=== PATIENT | male | born 1990 | race Caucasian/White ===

== ENCOUNTER 2016-09-05 20:59 | Emergency (ER) | payer BC ==
--- NOTE | 2016-09-06 06:57 | ER ---
ADMIT: 09/05/2016 RM/LOC: ER [facility] MR#: [id number] [id number] [place] [address] Emergency Room Report SEX: M AGE: 25 : 1990 DATE: 09/05/2016 The patient is a 25-year-old male, complaining of lower abdominal pain, associated with nausea, vomiting, fevers, chills, and nonbloody diarrhea for the past 2 days. States he typically has 4-5 loose stools a day and is now up to well over a dozen. No family history of inflammatory bowel disease. Mother did have gallbladder removed. Exam remarkable for nontoxic, afebrile, comfortably-appearing obese male, tender to palpation of epigastrium to right lower quadrant. Bowel sounds hypoactive. No CVA tenderness. CT abdomen and pelvis shows moderate colitis ascending to transverse colon. Normal appendix. Normal CBC, CMP. Elevated CRP of 18.1. Normal lipase and lactic acid and UA. The patient given a liter of fluid, Zofran, Toradol, Dilaudid with improvement of pain. Home with mesalamine 1200 mg load in department, 1 g p.o. q.i.d., dispensed 120 with one refill. Follow up Dr. Buckley within the next two weeks. Consider colonoscopy within the next 6 weeks. Blue Boothe MD/ marika JOB #: [id number] CC: Blue Boothe MD, Attending Physician Alfonso Buckley MD, Family Physician Alfonso Buckley MD
== END 2016-09-05 23:26 | disposition home or self-care (01) ==
LOC: ER 20:59
DX: K52.9 Noninfective gastroenteritis and colitis, unspecified (principal); I10 Essential (primary) hypertension; Z79.899 Other long term (current) drug therapy